=== PATIENT | female | born 2005 | race Hispanic/Latino ===

== ENCOUNTER 2025-01-03 18:21 | Emergency (ER) | payer OTHER ==
[~2025-01-03] VITALS: Ht 149.9 cm; Wt 54.0 kg
[2025-01-03 18:24] VITALS: TEMP 97
[2025-01-03] MEDS: ACETAMINOPHEN 500 MG TAB PO ONE (20:31)
[2025-01-03] MEDS ORDERED: LIDO1ADH93 TOP (20:31)
[2025-01-03] MEDS: LIDOCAINE 5% PATCH TD ONE (20:31)
[2025-01-03 21:07] VITALS: BP 117/68; O2SAT 100
== END 2025-01-03 21:08 | disposition home or self-care (01) ==
LOC: M ED 18:21
DX: M79.651 Pain in right thigh (principal); Z79.899 Other long term (current) drug therapy

== ENCOUNTER → 2025-01-14 | Outpatient (CLI) | payer OTHER ==
[~2025-01-14] MED LIST: LIDO1ADH93 TOP
[2025-01-14 13:20] LABS: PLATELET COUNT, AUTOMATED 345 10^3/uL (150-450)
[2025-01-14 14:19] LABS: HIV 1&2 SCREEN NEGATIVE (NEGATIVE)
[2025-01-14 14:22] LABS: Trichomonas vaginalis (AMP) NOT DETECTED (NEGATIVE)
[2025-01-14 14:27] LABS: HEPATITIS C VIRUS ABY INDEX < 0.02 INDEX (<0.8)
[2025-01-14 14:47] LABS: GC DNA AMPLIFICATION NEGATIVE (NEGATIVE)
== END ==
LOC: M PLALAB 11:49
PROVIDERS: ATTEND Specialist
DX: Z34.01 Encounter for supervision of normal first pregnancy, first trimester (principal)